=== PATIENT | female | born 1975 | race African-American/Black ===

== ENCOUNTER 2017-01-31 18:17 | Emergency (ER) | payer OTHER ==
--- NOTE | ~2017-01-31 | CR63 ---
[facility]. [facility] A Service of [facility] & [facility] / [facility] RADIOLOGY TEXT RESULTS PATIENT: ANDRE NOEL LOCATION: SED : 73 UNIT #: [id number] AGE: [address]: ANDRÉS HOPSON PA-C SEX: F ORDER DR: [id number] [address] [address] [id number] E MR#: [id number] Acc #: [id number] NAME: ANDRE NOEL : 1975 SEX: F STUDY DATE/TIME: 01/31/2017 19:19 UNIT: SED ROOM: STUDY DESCRIPTION: CR Chest 2 View Attending Physician: Andrés Hopson Pa-C Ordering Physician: Andrés Hopson Pa-C Primary Care Physician: Estrella Luke M.D. MEDICAL IMAGING REPORT This report is preliminary unless electronic signature is present. EXAM Chest PA and lateral, 01/31/2017 HISTORY Cough with chest pain and back pain for 2 days. FINDINGS PA and lateral examination of the chest upright shows a good expansion of the parenchyma with a normal distribution of the pulmonary vascularity. There is no indication of congestion, effusion, infiltrate, tumor, or nodular density. The pleural reflections and diaphragmatic contours are normal. The cardiac silhouette and mediastinal anatomy is within normal limits. IMPRESSION Normal chest. Dictated by... Juan Oliveira M.D. THIS IS AN ELECTRONICALLY VERIFIED REPORT Juan Oliveira M.D. at 02/01/2017 10:28 AM CASANDRA/karmen TD: 01/31/2017 23:48 JOB #: [id number] MEDICAL IMAGING REPORT Page 1 of 1
[~2017-01-31 18:17] MED LIST: ALBUTEROL17 GM INH; ALLEGRA ALLERG180 MG PO; BENZONATATE PO; DUO; IRON PILL; NEXIUM PO; PREDNISONE10 MG/DOSE PO; PREDNISONE50 MG PO; PROTONIX PO; QVAR7.3 G1 IH; ROBITUSSIN A-C S5 ML PO; SINGULAIR PO; TRIAMCINOLONE A15 G6 EXT; VIBRAMYCIN100 M1 PO; VITAMIN D50000 UNIT PO
[2017-01-31 19:11] LABS: BASOPHIL% 0.5 % (0-2.5); EOSINOPHIL# 0.2 X10e3 (0-0.7); EOSINOPHIL% 1.5 % (0.0-7.0); HEMATOCRIT 36.3 % (35.0-45.0); HEMOGLOBIN 11.9 gm/dL (12.0-16.0); LYMPHOCYTE# 3.1 X10e3 (1.0-3.5); LYMPHOCYTE% 30.1 % (17.0-45.0); MEAN CELL VOLUME 76.6 FL (83-96); MEAN CORPUSCULAR HGB CONC 32.7 g/dL (30-36); MEAN PLATELET VOLUME 8.4 FL (6.5-11.5); MONOCYTE# 0.7 X10e3 (0-1.0); MONOCYTE% 6.6 % (3.0-12.0); NEUTROPHIL# 6.2 X10e3 (1.5-7.1); NEUTROPHIL% 61.3 % (40-75); PLATELET COUNT 337 X10e3 (140-420); RED BLOOD COUNT 4.74 X10e (3.90-5.30); RED CELL DISTRIBUTION WIDTH 15.2 % (11.0-15.5); WHITE BLOOD COUNT 10.2 X10e3 (4.0-10.5)
[2017-01-31 19:12] LABS: DIFF IND NO
[2017-01-31 19:21] LABS: INFLUENZA A NEG (NEG); INFLUENZA B NEG (NEG)
[2017-01-31 19:26] LABS: ALKALINE PHOSPHATASE 59 U/L (32-92); ALT (SGPT) 10 U/L (10-40); AST (SGOT) 14 U/L (10-42); BILIRUBIN,TOTAL 0.3 mg/dL (0.2-2.0); BLOOD UREA NITROGEN 10 mg/dL (9-23); CARBON DIOXIDE 25 mmol/L (22-31); CHLORIDE 103 mmol/L (100-111); CREATININE SERUM 0.8 mg/dL (0.6-1.4); GLOM FILT RATE Estimated 105.5 mL/min (>60); GLUCOSE FASTING 109 mg/dL (70-110); POTASSIUM 3.4 mmol/L (3.5-5.1); PROTEIN TOTAL SERUM 8.1 g/dL (6.0-8.3); SODIUM 134 mmol/L (135-145)
[2017-01-31 19:28] LABS: BILIRUBIN, DIRECT <0.1 mg/dL (0.0-0.2); BILIRUBIN,INDIRECT 0.2 mg/dL (0.0-0.9)
[2017-01-31 19:40] LABS: MICRO INDICATED? YES; URINE APPEARANCE HAZY; URINE BILIRUBIN NEG (NEG); URINE BLOOD 1+ (NEG); URINE COLOR YELLOW; URINE GLUCOSE NEG (NORM); URINE KETONE NEG (NEG); URINE LEUKOCYTE ESTERASE NEG (NEG); URINE NITRATE NEG (NEG); URINE PROTEIN NEG (NEG); URINE SOURCE CLEAN CATCH; URINE SPECIFIC GRAVITY 1.015 (1.003-1.035)
[2017-01-31 19:43] LABS: CULTURE INDICATED? NO; URINE AMORPHOUS SEDIMENT AMORP PHOSPHATES; URINE BACTERIA NEG (NEG); URINE SQUAMOUS EPITHELIAL CELL OCCAS /[HPF]; URINE WBC 0-2 /[HPF] (0-5)
== END 2017-01-31 20:54 | disposition home or self-care (01) ==
LOC: SED 18:17
PROVIDERS: Physician Assistant
DX: B34.9 Viral infection, unspecified (principal); R31.9 Hematuria, unspecified; K21.9 Gastro-esophageal reflux disease without esophagitis; J45.909 Unspecified asthma, uncomplicated; Z88.0 Allergy status to penicillin; Z79.899 Other long term (current) drug therapy
CPT/HCPCS: 36415; 71020; 80048; 80076; 81003; 85025; 87651; 87804; 96361; 96374; 96375; 99284; J1200; J1885; J2765